=== PATIENT | female | born 1995 | race Asian ===

== ENCOUNTER 2023-12-10 17:31 | Outpatient (CLI) | payer OTHER ==
--- NOTE | 2023-12-11 15:25 | XRAY Report ---
PROCEDURE: Finger(s) LT INDICATIONS: FINGER PAIN,LEFT TECHNIQUE: AP hand, 2 views of the middle finger(s) acquired. COMPARISON: None. FINDINGS: Bones: No fracture or subluxation is identified. . Soft tissues: Soft tissue swelling of the middle finger noted. No radiopaque foreign body seen. IMPRESSION: No acute osseous abnormality. Soft tissue swelling. Reviewed by: Bennett Chaudhari MD on 12/11/2023 3:24 PM PDT Approved by: Bennett Chaudhari MD on 12/11/2023 3:24 PM PDT Station ID: [id number]
== END 2023-12-10 17:32 | disposition home or self-care (01) ==
LOC: DI 17:31
PROVIDERS: ATTEND Physician Assistant Medical
DX: M79.645 Pain in left finger(s) (principal)